=== PATIENT | female | born 1990 | race Caucasian/White ===

== ENCOUNTER 2020-11-08 19:32 | Emergency (ER) | payer MEDICAID ==
[~2020-11-08] VITALS: Ht 175.3 cm; Wt 77.3 kg
[2020-11-08] MEDS ORDERED: normal saline 1000ml 1,000 ML IV ONE (21:00)
[2020-11-08] MEDS ORDERED: ondansetron/PF 4mg/2ml inj IV ONE ×2 (21:00→22:00)
[2020-11-08] MEDS ORDERED: ketorolac tromethamine 15mg/ml inj. IV ONE (21:00)
[2020-11-08 21:24] LABS: BASOPHILS % (AUTO) 0.5 % (0-1); EOSINOPHILS # (AUTO) 0.2 X10'3 (0-0.9); EOSINOPHILS % (AUTO) 2.9 % (0-6); HEMOGLOBIN 14.4 g/dl (12.0-16.0); LYMPHOCYTES # (AUTO) 1.1 X10'3 (1.1-4.8); LYMPHOCYTES % (AUTO) 20.2 % (21-51); MEAN CORPUSCULAR HEMOGLOBIN 34.1 PG (27.0-31.0); MEAN CORPUSCULAR HGB CONC 35.1 g/dL (33.0-36.5); MEAN CORPUSCULAR VOLUME 97.2 FL (78-98); MEAN PLATELET VOLUME 9.6 FL (7.4-10.4); MONOCYTES # (AUTO) 0.4 X10'3 (0-0.9); MONOCYTES % (AUTO) 7.6 % (2-12); NEUTROPHILS # (AUTO) 3.8 X10'3 (1.8-7.7); NEUTROPHILS % (AUTO) 68.8 % (42-75); PLATELET COUNT 142 X10'3 (140-440); RED BLOOD COUNT 4.21 X10'6 (4.20-5.60); RED CELL DISTRIBUTION WIDTH 14.4 % (11.5-14.5); WHITE BLOOD COUNT 5.6 X10'3 (4.5-11.0)
[2020-11-08 21:36] LABS: ALANINE AMINOTRANSFERASE 38 U/L (12-78); ALBUMIN 3.6 G/DL (3.4-5.0); ALBUMIN/GLOBULIN RATIO 1.2 (1.1-1.5); ALKALINE PHOSPHATASE 50 IU/L (46-116); ANION GAP 8 (8-16); ASPARTATE AMINO TRANSFERASE 20 U/L (10-37); BILIRUBIN,TOTAL 0.3 MG/DL (0.1-1.0); BLOOD UREA NITROGEN 17 MG/DL (7-18); BUN/CREATININE RATIO 19.5 (6.6-38.0); CALCIUM 8.9 MG/DL (8.5-10.1); CHLORIDE 106 MMOL/L (99-107); CREATININE 0.87 MG/DL (0.40-0.90); GLUCOSE 86 MG/DL (70-104); POTASSIUM 4.3 MMOL/L (3.5-5.1); SODIUM 140 MMOL/L (135-145); TOTAL CARBON DIOXIDE 25.9 MMOL/L (24-32); TOTAL PROTEIN 6.6 G/DL (6.4-8.2); eGFR 76 ML/MIN
[2020-11-08] MEDS ORDERED: IBUP-1984 PO (21:42)
[2020-11-08] MEDS ORDERED: ONDA4TAB6 PO (21:42)
[2020-11-08] MEDS: ondansetron/PF 4mg/2ml inj IV ONE ×2 (21:55→22:15)
[2020-11-08] MEDS ORDERED: diphenhydrAMINE 50 mg/ml inj IV ONE (22:00)
[2020-11-08] MEDS ORDERED: proCHLORperazine 10 MG/2 ml inj IV ONE (22:00)
[2020-11-08 23:03] VITALS: BP 129/74
== END 2020-11-08 23:04 | disposition home or self-care (01) ==
LOC: ER 19:33
DX: T59.891A Toxic effect of other specified gases, fumes and vapors, accidental (unintentional), initial encounter (principal); R51.9 Headache, unspecified; J45.909 Unspecified asthma, uncomplicated; Z98.891 History of uterine scar from previous surgery; Z56.0 Unemployment, unspecified; Z79.899 Other long term (current) drug therapy; Y92.89 Other specified places as the place of occurrence of the external cause
CPT/HCPCS: 36415; 80053; 85025; 93005; 96361; 96374; 96375; 96376; 99284; J0780; J1200; J1885; J2405; J7030

== ENCOUNTER 2022-04-15 16:17 | Emergency (ER) | payer MEDICAID ==
[~2022-04-15] VITALS: Ht 175.3 cm; Wt 102.3 kg
[~2022-04-15 16:17] MED LIST: ONDA4TAB6 PO
[2022-04-15 17:34] VITALS: BP 112/69
[2022-04-15 18:22] LABS: URINE HCG NEGATIVE (NEG)
[2022-04-15 18:30] LABS: ALANINE AMINOTRANSFERASE 29 U/L (12-78); ALBUMIN 4.1 G/DL (3.4-5.0); ALBUMIN/GLOBULIN RATIO 1.1 (1.1-1.5); ALKALINE PHOSPHATASE 61 IU/L (46-116); ANION GAP 11 (8-16); ASPARTATE AMINO TRANSFERASE 22 U/L (10-37); BILIRUBIN,TOTAL 0.6 MG/DL (0.1-1.0); BLOOD UREA NITROGEN 14 MG/DL (7-18); BUN/CREATININE RATIO 17.1 (6.6-38.0); CALCIUM 9.5 MG/DL (8.5-10.1); CHLORIDE 102 MMOL/L (99-107); CREATININE 0.82 MG/DL (0.40-0.90); GLUCOSE 93 MG/DL (70-104); LIPASE 148 U/L (73-393); POTASSIUM 3.9 MMOL/L (3.5-5.1); SODIUM 136 MMOL/L (135-145); TOTAL CARBON DIOXIDE 23.2 MMOL/L (24-32); TOTAL PROTEIN 7.7 G/DL (6.4-8.2); eGFR 81 ML/MIN
[2022-04-15 18:33] LABS: CLARITY,URINE CLOUDY (Clear); GLUCOSE, URINE NEGATIVE (Neg); KETONES,URINE NEGATIVE (Neg); LEUKOCYTE ESTERASE ,URINE SMALL (Neg); NITRITES, URINE NEGATIVE (Neg); OCCULT BLOOD,URINE LARGE (Neg); PH,URINE 5.5 (4.8-8.0); PROTEIN,URINE 30 mg/dl (Neg); UROBILINOGEN,URINE 0.2 E.U/dL (0.2-1.0)
[2022-04-15 18:38] LABS: BASOPHILS % (AUTO) 0.2 % (0-1); EOSINOPHILS # (AUTO) 0.1 X10'3 (0-0.9); EOSINOPHILS % (AUTO) 0.6 % (0-6); HEMATOCRIT 46.9 % (35.0-45.0); HEMOGLOBIN 16.2 g/dl (12.0-16.0); LYMPHOCYTES # (AUTO) 1.3 X10'3 (1.1-4.8); LYMPHOCYTES % (AUTO) 13.8 % (21-51); MEAN CORPUSCULAR HEMOGLOBIN 33.2 PG (27.0-31.0); MEAN CORPUSCULAR HGB CONC 34.6 g/dL (33.0-36.5); MEAN PLATELET VOLUME 9.9 FL (7.4-10.4); MONOCYTES # (AUTO) 0.6 X10'3 (0-0.9); NEUTROPHILS # (AUTO) 7.5 X10'3 (1.8-7.7); NEUTROPHILS % (AUTO) 79.4 % (42-75); PLATELET COUNT 171 X10'3 (140-440); RED BLOOD COUNT 4.89 X10'6 (4.20-5.60); RED CELL DISTRIBUTION WIDTH 13.2 % (11.5-14.5); WHITE BLOOD COUNT 9.5 X10'3 (4.5-11.0)
[2022-04-15 18:40] LABS: COLOR,URINE AMBER (Yellow); UA COLLECTION TYPE CLN CATCH MIDSTREAM
[2022-04-15 18:41] LABS: WBC,URINE TNTC /HPF (0-4)
[2022-04-15 18:42] LABS: BACTERIA,URINE 2+ /HPF (Neg); RBC,URINE 50-100 /HPF (0-2); SQUAMOUS EPITHELIAL CELL,UR MODERATE /LPF (FEW); WBC CLUMPS,URINE MODERATE /HPF (NEGATIVE)
== END 2022-04-15 20:10 | disposition left against medical advice (07) ==
LOC: ER 16:18
DX: R10.9 Unspecified abdominal pain (principal); Z53.21 Procedure and treatment not carried out due to patient leaving prior to being seen by health care provider
CPT/HCPCS: 36415; 80053; 81001; 81025; 83690; 85025; 87088

== ENCOUNTER 2022-05-26 13:39 | Inpatient (IN) | payer MEDICAID ==
[~2022-05-26] VITALS: Ht 175.3 cm; Wt 109.0 kg
[2022-05-26 14:23] VITALS: BP 136/109
[2022-05-26] MEDS ORDERED: acetaminophen 325mg tablet PO PRN ×2 (14:30)
[2022-05-26] MEDS ORDERED: loperamide 2mg capsule PO PRN (14:30)
[2022-05-26] MEDS ORDERED: magnesium hydroxide 30ml (MOM) UD suspension PO PRN (14:30)
[2022-05-26] MEDS ORDERED: mag hydrox/Alum hydrox/simeth 30ml oral suspension PO PRN (14:30)
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
[2022-05-26] MEDS ORDERED: FLUO40CA PO (15:13)
[2022-05-26] MEDS ORDERED: ALPR0.5T9 PO (15:13)
[2022-05-26] MEDS ORDERED: ONDA-104 PO (15:24)
[2022-05-26] MEDS ORDERED: TRAZ-251 PO (15:24)
[2022-05-26] MEDS ORDERED: LAMO25TA5 PO (15:24)
[2022-05-26] MEDS ORDERED: HYDR-3686 PO (15:24)
[2022-05-26] MEDS ORDERED: OLAN5TAB75 PO (15:24)
[2022-05-26] MEDS: LORazepam 0.5 MG tablet PO PRN (16:10)
[2022-05-26] MEDS ORDERED: ondansetron 4mg rapidly disintigrating tab PO PRN (16:37)
[2022-05-26] MEDS: hydrOXYzine 25 MG tablet PO PRN (17:29)
[2022-05-26] MEDS ORDERED: ALPRAZolam 0.5mg tablet PO ONE (19:34)
[2022-05-26] MEDS: lamoTRIgine 25mg tablet PO SCH (20:05)
[2022-05-26] MEDS: traZODone 50mg tablet PO SCH (20:05)
[2022-05-26] MEDS: OLANZAPINE 5 MG TABLET PO SCH (20:05)
[2022-05-26 20:40] VITALS: BP 117/65
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
[2022-05-26] MEDS ORDERED: traZODone 50mg tablet PO ONE (21:31)
[2022-05-27] MEDS: LORazepam 0.5 MG tablet PO PRN ×3 (04:16→20:28)
[2022-05-27 08:00] VITALS: BP 116/56
[2022-05-27] MEDS: hydrOXYzine 25 MG tablet PO PRN ×2 (08:18→19:00)
[2022-05-27] MEDS: FLUoxetine 20mg capsule PO SCH (08:18)
[2022-05-27 09:20] LABS: CHOLESTEROL 212 MG/DL (0-200); HDL CHOLESTEROL 53 MG/DL (35-60); LDL CHOLESTEROL 134 MG/DL (50-100); TRIGLYCERIDES 170 MG/DL (20-135)
[2022-05-27 10:08] LABS: HEMOGLOBIN A1C 4.9 % (4.5-6.2)
[2022-05-27] MEDS: nicotine 21mg patch - 24 hr TD SCH (13:00)
--- NOTE | 2022-05-27 16:57 | NUR ---
Nursing note: Problem: Pt admitted today at 1400 from [facility] on 5150 for DTS. Pt attempted to overdose on medications and attempted to strangle yourself with a cord. You stated,"I dont want to be alive anymore." Pt has history of borderline personality disorder. Interventions: One to one with the patient to assess severity of depressive symptoms, self-harm risk and to review the plan of care. Reviewed medications with her. Response: Patient was awake early, sitting on her bed. 1:1 at bedside before breakfast. Patient states, I want to go home, I just had a bad night, I was drunk thats all. She does not want to discuss what happened while she was drunk. Patient denies wanting to harm herself that night, I was just having fun, and it got out of hand. After breakfast patient requested Atarax for anxiety, that helped some. Patient spoke with her provider, and she will be discharged tomorrow, so she can start her new job tomorrow. She has isolated to her room all day, except for meals. Plan: Continue q 15 minute safety checks. Assess self-harm risk at least q shift. Provide medication education.
[2022-05-27] MEDS: OLANZAPINE 5 MG TABLET PO SCH (20:27)
[2022-05-27] MEDS: lamoTRIgine 25mg tablet PO SCH (20:27)
[2022-05-27] MEDS: traZODone 50mg tablet PO SCH ×2 (20:28→21:46)
[2022-05-27 20:30] VITALS: BP 116/53
--- NOTE | 2022-05-27 21:58 | NUR ---
Nursing note: Problem: Pt admitted from [facility] on 5150 for DTS. Pt attempted to overdose on medications and attempted to strangle yourself with a cord. You stated,"I dont want to be alive anymore." Pt has history of borderline personality disorder. Interventions: One to one with the patient to assess severity of depressive symptoms, self-harm risk and to review the plan of care. Reviewed medications with her. Response: Patient was ambulatory, steady gait on the unit after change of shift. Patient is talkative with RN in patient's room. Patient states she should be discharged tomorrow but RN advised patient she does not know the time of discharge. Patient denies suicidal ideation. Patient appears calm and cooperative. RN gave patient her night time meds in bed. Then 15 minutes later, RN sees patient walking around the hallways talking on the phone for quite a while. about an hour after patient received her medication and while she is still talking on the phone, patient asked for her second Trazodone. RN advised patient that she needs to stop stimulating herself with walking on talking on the phone. RN advised patient to relax in bed and allow the medications to work. RN did give patient the second Trazodone and also gave the patient ear plugs and a mask as her roommate was snoring and keeps the BR light on. Patient feels she is ready to go home. Plan: Continue q 15 minute safety checks. Assess self-harm risk at least q shift. Provide medication education.
[2022-05-27] MEDS ORDERED: prazosin 1mg capsule PO SCH (23:30)
[2022-05-28] MEDS: nicotine 21mg patch - 24 hr TD SCH (08:00)
[2022-05-28] MEDS: FLUoxetine 20mg capsule PO SCH (08:09)
[2022-05-28] MEDS: LORazepam 0.5 MG tablet PO PRN (08:09)
[2022-05-28] MEDS ORDERED: NICO-687 TD (09:07)
[2022-05-28] MEDS ORDERED: PRAZ1CAP5 PO (09:07)
--- NOTE | 2022-05-28 11:12 | NUR ---
Patient starts a new job on Wednesday. She is discharged today in stable condition.
[2022-05-28] MEDS ORDERED: prazosin 1mg capsule PO SCH (21:00)
== END 2022-05-28 11:25 | disposition home or self-care (01) | DRG 751 ==
LOC: ADULT MH 13:55
PROVIDERS: ADMIT Psychiatry & Neurology Psychiatry; ATTEND Psychiatry & Neurology Psychiatry
DX: F33.41 Major depressive disorder, recurrent, in partial remission (principal); F10.10 Alcohol abuse, uncomplicated; F43.25 Adjustment disorder with mixed disturbance of emotions and conduct; F17.210 Nicotine dependence, cigarettes, uncomplicated; F60.3 Borderline personality disorder; F43.12 Post-traumatic stress disorder, chronic; F90.9 Attention-deficit hyperactivity disorder, unspecified type; T42.4X2A Poisoning by benzodiazepines, intentional self-harm, initial encounter; Z56.0 Unemployment, unspecified; Z79.899 Other long term (current) drug therapy; Z80.3 Family history of malignant neoplasm of breast; Z81.8 Family history of other mental and behavioral disorders; Z82.5 Family history of asthma and other chronic lower respiratory diseases; Z91.51 Personal history of suicidal behavior; Y92.89 Other specified places as the place of occurrence of the external cause; Z91.040 Latex allergy status; Z71.6 Tobacco abuse counseling
CPT/HCPCS: 36415; 80061; 83036; 87081; Q0177

== ENCOUNTER 2024-08-22 18:43 | Emergency (ER) | payer MEDICAID ==
[~2024-08-22] VITALS: Ht 175.3 cm; Wt 102.7 kg
[~2024-08-22 18:43] MED LIST changes: +FLUO40CA PO; +HYDR-3686 PO; +LAMO25TA5 PO; +NICO-687 TD; +OLAN5TAB75 PO; +ONDA-104 PO; -ONDA4TAB6 PO; +PRAZ1CAP5 PO; +TRAZ-251 PO
[2024-08-22 19:20] LABS: BASOPHILS % (AUTO) 0.6 % (0-1); EOSINOPHILS # (AUTO) 0.1 X10'3 (0-0.9); EOSINOPHILS % (AUTO) 1.2 % (0-6); HEMATOCRIT 44.4 % (35.0-45.0); HEMOGLOBIN 15.6 g/dl (12.0-16.0); LYMPHOCYTES # (AUTO) 1.5 X10'3 (1.1-4.8); LYMPHOCYTES % (AUTO) 27.1 % (21-51); MEAN CORPUSCULAR HEMOGLOBIN 32.1 PG (27.0-31.0); MEAN CORPUSCULAR HGB CONC 35.1 g/dL (33.0-36.5); MEAN CORPUSCULAR VOLUME 91.4 FL (78-98); MEAN PLATELET VOLUME 9.4 FL (7.4-10.4); MONOCYTES # (AUTO) 0.4 X10'3 (0-0.9); MONOCYTES % (AUTO) 7.8 % (2-12); NEUTROPHILS # (AUTO) 3.4 X10'3 (1.8-7.7); NEUTROPHILS % (AUTO) 63.3 % (42-75); PLATELET COUNT 197 X10'3 (140-440); RED BLOOD COUNT 4.86 X10'6 (4.20-5.60); RED CELL DISTRIBUTION WIDTH 12.4 % (11.5-14.5); WHITE BLOOD COUNT 5.4 X10'3 (4.5-11.0)
[2024-08-22 19:26] LABS: ANION GAP 7 (8-16); BLOOD UREA NITROGEN 11 MG/DL (7-18); BUN/CREATININE RATIO 12.2 (10.0-20.0); CALCIUM 9.2 MG/DL (8.5-10.1); CHLORIDE 106 MMOL/L (99-107); GLUCOSE 94 MG/DL (70-104); POTASSIUM 3.9 MMOL/L (3.5-5.1); SODIUM 141 MMOL/L (135-145); TOTAL CARBON DIOXIDE 27.7 MMOL/L (24-32); eCRCL 92 ML/MIN; eGFR 72 ML/MIN
[2024-08-22 19:32] LABS: URINE HCG NEGATIVE (NEG)
[2024-08-22 19:39] LABS: BILIRUBIN,URINE NEGATIVE (Neg); CLARITY,URINE CLEAR (Clear); COLOR,URINE YELLOW (Yellow); GLUCOSE, URINE NEGATIVE (Neg); KETONES,URINE NEGATIVE (Neg); LEUKOCYTE ESTERASE ,URINE NEGATIVE (Neg); NITRITES, URINE NEGATIVE (Neg); OCCULT BLOOD,URINE SMALL (Neg); PH,URINE 7.5 (4.8-8.0); PROTEIN,URINE NEGATIVE (Neg)
[2024-08-22 19:44] LABS: UA COLLECTION TYPE CLN CATCH MIDSTREAM
[2024-08-22 19:46] LABS: BACTERIA,URINE 1+ /HPF (Neg); RBC,URINE 0-2 /HPF (0-2); SQUAMOUS EPITHELIAL CELL,UR MODERATE /LPF (FEW); WBC,URINE 0-4 /HPF (0-4)
[2024-08-22 19:47] LABS: AMORPHOUS PHOSPHATES 3+
[2024-08-22 19:48] LABS: URINE AMPHETAMINE SCREEN NEGATIVE (Neg); URINE BARBITUATE SCREEN NEGATIVE (Neg); URINE BENZODIAZEPINES SCREEN NEGATIVE (Neg); URINE CANNABINOID SCREEN NEGATIVE (Neg); URINE COCAINE SCREEN NEGATIVE (Neg); URINE METHADONE SCREEN NEGATIVE (Neg); URINE OPIATE SCREEN NEGATIVE (Neg); URINE PHENCYCLIDINE SCREEN NEGATIVE (Neg)
[2024-08-22] MEDS: LORazepam 1 MG tablet PO ONE (21:32)
[2024-08-23 06:35] VITALS: BP 142/82; PULSE 62; RESP 16; TEMP 98.2; O2SAT 99
[2024-08-23] MEDS: hydrOXYzine 25 MG tablet PO ONE (10:21)
[2024-08-23] MEDS: nicotine 7mg patch - 24hr TD ONE (10:36)
[2024-08-23] MEDS: acetaminophen 325mg tablet PO ONE (10:53)
[2024-08-23 15:39] LABS: ALANINE AMINOTRANSFERASE 27 U/L (12-78); ALBUMIN 3.4 G/DL (3.4-5.0); ALBUMIN/GLOBULIN RATIO 1.4 (1.1-1.5); ALKALINE PHOSPHATASE 49 IU/L (46-116); ANION GAP 6 (8-16); ASPARTATE AMINO TRANSFERASE 13 U/L (10-37); BILIRUBIN,TOTAL 0.3 MG/DL (0.1-1.0); BLOOD UREA NITROGEN 14 MG/DL (7-18); BUN/CREATININE RATIO 18.4 (10.0-20.0); CALCIUM 8.5 MG/DL (8.5-10.1); CHLORIDE 107 MMOL/L (99-107); CREATININE 0.76 MG/DL (0.40-0.90); GLUCOSE 93 MG/DL (70-104); POTASSIUM 4.2 MMOL/L (3.5-5.1); SODIUM 141 MMOL/L (135-145); TOTAL CARBON DIOXIDE 28.3 MMOL/L (24-32); TOTAL PROTEIN 5.9 G/DL (6.4-8.2); eCRCL 109 ML/MIN; eGFR 87 ML/MIN
[2024-08-23] MEDS: LORazepam 1 MG tablet PO PRN (16:24)
== END 2024-08-23 19:41 ==
LOC: ER 18:44
DX: R45.851 Suicidal ideations (principal); F41.9 Anxiety disorder, unspecified; J45.909 Unspecified asthma, uncomplicated; Z20.822 Contact with and (suspected) exposure to COVID-19; Z91.040 Latex allergy status
CPT/HCPCS: 36415; 80048; 80053; 80305; 81001; 81025; 85025; 87811; 99285; Q0177